=== PATIENT | male | born 1995 | race Hispanic/Latino ===

== ENCOUNTER 2020-01-06 22:20 | Emergency (ER) | payer OTHER ==
[2020-01-07] MEDS ORDERED: KETOROLAC 30 MG/ML 1ML VIAL As Ordered ONE (01:45)
[2020-01-07] MEDS ORDERED: KETOROLAC 30 MG/ML 1ML VIAL ONE (01:45)
== END 2020-01-07 01:53 | disposition home or self-care (01) ==
LOC: M ED 22:20
DX: R51 Headache (principal)
CPT/HCPCS: 96361; 96374; 99283; J1885

== ENCOUNTER 2020-04-15 04:05 | Emergency (ER) | payer OTHER ==
[~2020-04-15] VITALS: Ht 182.9 cm; Wt 75.0 kg
[2020-04-15 06:05] LABS: BASO # 0.1 10^3/uL (0.0-0.2); BASO % 0.8 % (0.0-1.0); EOS # 0.3 10^3/uL (0.0-0.5); HEMOGLOBIN 14.7 g/dl (13.5-17.5); LYMPH % 14.6 % (24.0-44.0); MEAN CORPUSCULAR HEMOGLOBIN 26.5 pg (27.0-33.0); MEAN CORPUSCULAR HGB CONC 32.7 g/dl (32.0-36.5); MEAN CORPUSCULAR VOLUME 81.1 fl (80.0-96.0); MONO # 0.8 10^3/uL (0.0-0.8); MONO % 5.9 % (0.0-5.0); NEUTROPHILS # 10.3 10^3/uL (1.5-8.5); NEUTROPHILS % 76.3 % (36.0-66.0); PLATELET COUNT, AUTOMATED 281 10^3/uL (150-450); RED BLOOD COUNT 5.55 10^6/uL (4.30-6.10); WHITE BLOOD COUNT 13.5 10^3/uL (4.0-10.0)
[2020-04-15 06:28] LABS: ALBUMIN 4.2 GM/DL (3.2-5.2); ALT/SGPT 86 U/L (12-78); BILIRUBIN,DIRECT < 0.1 MG/DL (0.0-0.2); BILIRUBIN,TOTAL 0.4 MG/DL (0.2-1.0); LIPASE 152 U/L (73-393)
[2020-04-15] MEDS ORDERED: KETOROLAC 30 MG/ML 1ML VIAL IV ONE (06:30)
[2020-04-15] MEDS ORDERED: ONDANSETRON 4MG/2ML VIAL IV ONE (06:30)
[2020-04-15] MEDS ORDERED: NS 1,000 ML IV ONE (06:30)
[2020-04-15] MEDS ORDERED: CLOT1CRE56 TOP (06:59)
--- NOTE | 2020-04-15 07:35 | REPVR ---
PROCEDURE INFORMATION: Exam: CT Abdomen And Pelvis Without Contrast Exam date and time: 04/15/2020 6:49 AM Age: 25 years old Clinical indication: Abdominal pain; Flank; Left; Additional info: L flank pain, hematuria, R/O stone TECHNIQUE: Imaging protocol: Computed tomography of the abdomen and pelvis without contrast. Radiation optimization: All CT scans at this facility use at least one of these dose optimization techniques: automated exposure control; mA and/or kV adjustment per patient size (includes targeted exams where dose is matched to clinical indication); or iterative reconstruction. COMPARISON: No relevant prior studies available. FINDINGS: Liver: Normal. No mass. Gallbladder and bile ducts: Normal. No calcified stones. No ductal dilation. Pancreas: Normal. No ductal dilation. Spleen: Normal. No splenomegaly. Adrenal glands: Normal. No mass. Kidneys and ureters: Punctate obstructing calculus at the left ureterovesical junction with mild left ureterectasis and mild to moderate left pelvicaliectasis. Calculus is best demonstrated on coronal reconstruction images series 202, image 50 and is not definitely visualized on the axial series. Stomach and bowel: Unremarkable. No obstruction. No mucosal thickening. Appendix: No evidence of appendicitis. Intraperitoneal space: Unremarkable. No free air. No significant fluid collection. Vasculature: Unremarkable. No abdominal aortic aneurysm. Lymph nodes: Unremarkable. No enlarged lymph nodes. Urinary bladder: Unremarkable as visualized. Reproductive: Unremarkable as visualized. Bones/joints: Unremarkable. No acute fracture. Soft tissues: Unremarkable. IMPRESSION: Punctate obstructing left ureterovesical junction calculus. Electronically signed by: Cherelle Mccurdy On 04/15/2020 07:35:26 AM
[2020-04-15] MEDS ORDERED: FLOM0.4C39 PO (08:51)
[2020-04-15] MEDS ORDERED: CIPR-249 PO (08:51)
[2020-04-15] MEDS ORDERED: KETO10TAB PO (08:51)
[2020-04-15 09:00] VITALS: BP 135/68
== END 2020-04-15 09:21 | disposition home or self-care (01) ==
LOC: M ED 04:05
DX: N20.1 Calculus of ureter (principal); N23 Unspecified renal colic; N39.0 Urinary tract infection, site not specified; B35.4 Tinea corporis; R19.7 Diarrhea, unspecified; R11.2 Nausea with vomiting, unspecified; Z79.899 Other long term (current) drug therapy
CPT/HCPCS: 36415; 74176; 80047; 80076; 81001; 83690; 85025; 96361; 96374; 96375; 99284; J1885; J2405